=== PATIENT | female | born 1985 | race Caucasian/White ===

== ENCOUNTER → 2023-03-27 15:20 | Outpatient (BNVA) | payer SELFPAY | PROVIDERS: Visit Provider Nurse Practitioner Family | DX: R11.2 Nausea with vomiting, unspecified (principal); R19.7 Diarrhea, unspecified; R52 Pain, unspecified; N39.0 Urinary tract infection, site not specified | CPT/HCPCS: 81000; 87077; 87086; 87184; 87400; 87426 ==

== ENCOUNTER 2023-08-08 18:59 | Emergency (ER) | payer BC, MEDICAID, SELFPAY ==
[2023-08-08 19:40] VITALS: BP 147/89; PULSE 72; RESP 16; TEMP 36.7; O2SAT 99; BMI 34.2
--- NOTE | 2023-08-08 19:47 | ECG_ITS ---
[facility] Test Date: 2023-08-08 Pat Name: Lizbeth Peterson Department: Room: Gender: Female Pharmacy Student: : 1985 Requested By: Man Martinez Order Number: [id number] Jones MD: José Manuel Salazar M.D. Measurements Intervals [place] Rate: 64 P: 41 VA: 130 QRS: 27 QRSD: 103 T: 26 QT: 409 QTc: 423 Interpretive Statements SINUS RHYTHM No previous ECG available for comparison Electronically Signed On 08-10-2023 12:37:19 CDT by José Manuel Salazar M.D. [id number]
[2023-08-08 20:48] LABS: Amorphous Sediment Urine TRACE /hpf; Bacteria Urine 1+ /hpf; Bilirubin Urine Neg (Negative); Blood Urine Neg (Negative); Glucose Urine UA Norm (Normal); Ketones Urine Negative (Negative); Leukocyte Esterase Urine Negative (Negative); Mucus Urine 1+ /hpf; Nitrate Urine Negative (Negative); Protein Urine Neg (Negative); RBC Urine 0-4 /hpf (0-2); Urine Appearance Hazy (CLEAR); Urine Color Yellow (Yellow); Urobilinogen Urine Neg (Negative); WBC Urine 0-4 /hpf (0-5); pH Urine 5 (5-7)
--- NOTE | 2023-08-08 21:10 | ED_ITS ---
HPI - Abdominal Pain General: Chief Complaint: Abdominal Pain Stated Complaint: severe right back pain has uti tightness in chest Time Seen by Provider: 08/08/23 21:08 History of Present Illness: 38-year-old female who says she has been battling an E. coli urinary tract infection for some time. Recently had worsening and was started on Macrobid. She says now she is been having flank pain and continued dysuria. She has been feeling lightheaded and dizzy. Review of Systems Narrative: Constitutional symptoms: Negative except as documented in HPI. Skin symptoms: Negative except as documented in HPI. Eye symptoms: Negative except as documented in HPI. ENMT symptoms: Negative except as documented in HPI. Respiratory symptoms: Negative except as documented in HPI. Cardiovascular symptoms: Negative except as documented in HPI. Gastrointestinal symptoms: Negative except as documented in HPI. Genitourinary symptoms: Negative except as documented in HPI. Musculoskeletal symptoms: Negative except as documented in HPI. Neurologic symptoms: Negative except as documented in HPI. Psychiatric symptoms: Negative except as documented in HPI. Endocrine symptoms: Negative except as documented in HPI. Course Vital Signs: Vital signs: Vital Signs Temperature 98.1 F 08/08/23 19:40 Pulse Rate 72 08/08/23 19:40 Respiratory Rate 16 08/08/23 19:40 Blood Pressure 147/89 08/08/23 19:40 Pulse Oximetry 99 08/08/23 19:40 Oxygen Delivery Me thod Room Air 08/08/23 19:40 MDM - Abdominal Pain Medical Decision Making Medical decision making: Differential diagnosis including but not limited to and based on the above HPI, review of systems and physical exam: Orders placed to evaluate differential diagnosis based on the above differential, HPI and physical exam EKG: Time 1956 rate 64 normal sinus rhythm, No ST-T changes, no ectopy, normal HI & QRS intervals, This was reviewed and interpreted by myself the ER physician at 2004. Lab Review: Laboratory results were reviewed and interpreted by myself the emergency room physician. Urinalysis reveals the patient still has a urinary tract infection. I reviewed the patient's medical record. Assessment and plan: Urinary tract infection Dehydration -Rocephin and normal saline bolus in the emergency room - Discharged home - Discussed plan with patient. Answered any questions. - Evaluation and treatment of this problem were appropriate in the emergency setting. Lab Data Labs/Radiology: Laboratory Results Urine Color Yellow (Yellow) 08/08/23 20:00 Urine Appearance Hazy (CLEAR) A 08/08/23 20:00 Urine pH 5 (5-7) 08/08/23 20:00 Ur Specific [place] 1.020 (1.005-1.030) 08/08/23 20:00 Urine Protein Neg (Negative) 08/08/23 20:00 Urine Glucose (UA) Norm (Normal) 08/08/23 20:00 Urine Ketones Negative (Negative) 08/08/23 20:00 Urine Blood Neg (Negative) 08/08/23 20:00 Urine Nitrate Negative (Negative) 08/08/23 20:00 Urine Bilirubin Neg (Negative) 08/08/23 20:00 Urine Urobilinogen Neg mg/dL (Negative) 08/08/23 20:00 Ur Leukocyte Esterase Negative (Negative) 08/08/23 20:00 Urine RBC 0-4 /hpf (0-2) H 08/08/23 20:00 Urine WBC 0-4 /hpf (0-5) H 08/08/23 20:00 Ur Squamous Epith Cells 5-10 /hpf (0-5) H 08/08/23 20:00 Calcium Oxalate Crystal 5-10 /hpf H 08/08/23 20:00 Amorphous Sediment Trace /hpf 08/08/23 20:00 Urine Bacteria 1+ /hpf (NONE) H 08/08/23 20:00 Urine Mucus 1+ /hpf 08/08/23 20:00 No radiology studies performed this visit Discharge Plan Discharge Patient Disposition: Home Clinical Impression: Urinary tract infection, Dehydration Condition: Stable Prescriptions: New diclofenac sodium 50 mg tablet,delayed release (DR/EC) 50 mg PO Q12H Qty: 20 0RF cefdinir 300 mg capsule 300 mg PO BID 10 Days Qty: 20 0RF No Action baclofen 20 mg tablet 20 mg PO TID gabapentin 600 mg tablet 600 mg PO TID ezetimibe [Zetia] 10 mg tablet 10 mg PO DAILY metformin 500 mg tablet 500 mg PO DAILY buspirone 10 mg tablet 10 mg PO TID sertraline [Zoloft] 100 mg tablet 150 mg PO DAILY atenolol 50 mg tablet 50 mg PO DAILY albuterol sulfate 2.5 mg /3 mL (0.083 %) solution for nebulization 2.5 mg inhalation Q6H PRN albuterol sulfate 90 mcg/actuation aerosol powdr breath activated 2 inh inhalation Q6H PRN pantoprazole 20 mg tablet,delayed release (DR/EC) 20 mg PO DAILY diphenhydramine HCl [Benadryl] 25 mg capsule 25 mg PO TID PRN cetirizine [Zyrtec] 10 mg tablet 10 mg PO DAILY PRN sulfamethoxazole-trimethoprim [Bactrim DS] 800-160 mg tablet 1 tab PO BID 7 Days Qty: 14 0RF Discharge Orders: Discharge ED (Routine); Ordered 08/08/23 Ordered By: Kasey Teran Discharge Diet: Usual diet Discharge Activity: Increase activity as tolerated Patient Instructions: Urinary Tract Infection in Women (ED), Opioid Safety, Pain Management Coding Level of Care Code ED [employer] for [place]
[2023-08-08] MEDS: cefTRIAXone 1,000 MG in sodium chloride 0.9% (plus) 50 ML 100 MG IV (21:56)
[2023-08-08] MEDS: sodium chloride 0.9% 1,000 ML 999 ML IV (21:56)
== END 2023-08-08 23:22 | disposition home or self-care (01) ==
PROVIDERS: Emergency Medicine; Emergency Provider Emergency Medicine
DX: N39.0 Urinary tract infection, site not specified (principal); E86.0 Dehydration; Z79.84 Long term (current) use of oral hypoglycemic drugs
CPT/HCPCS: 81001; 93005; 96374; 99284; J0696; J7030

== ENCOUNTER 2023-09-12 14:03 | Emergency (ER) | payer BC, MEDICAID, SELFPAY ==
[2023-09-12 14:21] VITALS: BP 125/84; PULSE 87; RESP 16; TEMP 36.6; O2SAT 99; BMI 33.7
--- NOTE | 2023-09-12 14:32 | CTR_ITS ---
PROCEDURE INFORMATION: Exam: CT Abdomen And Pelvis With Contrast Exam date and time: 09/12/2023 3:16 PM Age: 38 years old Clinical indication: Nausea and vomiting; Abdominal pain; Epigastric; Prior surgery; Surgery date: 6+ months; Surgery type: Hyst, gb, hernia; Additional info: Abd pain TECHNIQUE: Imaging protocol: Computed tomography of the abdomen and pelvis with contrast. Axial, coronal and sagittal reformatted images were created and reviewed. Radiation optimization: All CT scans at this facility use at least one of these dose optimization techniques: automated exposure control; mA and/or kV adjustment per patient size (includes targeted exams where dose is matched to clinical indication); or iterative reconstruction. Contrast material: OMNI 350; Contrast volume: 100 ml; Contrast route: INTRAVENOUS (IV); COMPARISON: No relevant prior studies available. RADIATION DOSE METRICS: Total DLP (mGy-cm): 1003.5 FINDINGS: Liver: Diffuse hepatic steatosis. Gallbladder and bile ducts: Status post cholecystectomy. No biliary ductal dilatation. Pancreas: Unremarkable. Spleen: Unremarkable. Adrenal glands: Normal. No mass. Kidneys and ureters: Left renal cysts, measuring up to 1.1 cm (no follow-up is indicated based on the imaging appearance). Nonobstructing left renal calculus. No hydronephrosis. Stomach and bowel: No bowel wall thickening. No obstruction. No pneumatosis. Appendix: Normal. Intraperitoneal space: No free fluid. No organized fluid collection. No free air. Vasculature: Mild atherosclerotic disease. No aneurysm or dissection. Lymph nodes: No pathologically enlarged lymph nodes. Urinary bladder: Mild circumferential urinary bladder wall thickening, likely secondary to underdistention. Reproductive: Bilateral ovarian follicles. Status post hysterectomy. Bones/joints: No acute osseous abnormality. Mild degenerative changes. Soft tissues: Unremarkable. CT/CT abdomen pelvis w con* [id number]: 1. No CT evidence of acute intra-abdominal or pelvic pathology. 2. Additional findings, as above. COMMENTS: Consistent with the [employer]'s Incidental Findings Committee white paper (J Am Gregg Radiol 2018): Any incidental renal lesion less than 1 cm or classified as too small to characterize, or any incidental cystic renal lesion characterized as simple-appearing, is likely benign. No follow-up imaging is recommended for these lesions per consensus recommendations based on imaging criteria.
--- NOTE | 2023-09-12 14:33 | ED_ITS ---
HPI - Abdominal Pain 2 General: Chief Complaint: Abdominal Pain Stated Complaint: abd pain, lower back pain, nausea Time Seen by Provider: 09/12/23 14:04 Source: patient Mode of arrival: ambulatory Limitations: no limitations History of Present Illness: 38-year-old female states she been havin g epigastric pain over the last week. States its much worse after eating has been a burning sharp pain she had some nausea denies any vomiting she had a cholecystectomy and a hysterectomy in the past. She states that she has had gastritis in the past but is not on any meds for currently. Denies any fevers or dysuria Associated Symptoms: Reports nausea; Denies chills, diarrhea, dysuria, fever(s) and vomiting Review of Systems 2 Const: Denies: fever(s), chills, body aches or change in appetite Eyes: Denies: blurry vision or eye discomfort ENMT: Denies: throat pain or dental pain Card: Denies: chest pain Resp: Denies: dyspnea GI: Reports: abdominal pain and nausea; Denies: vomiting or diarrhea : Denies: dysuria Musc: Denies: neck pain or back pain Skin/Breast: Denies: rash Neuro: Denies: headache(s) Physical Exam 2 Const: COMMON NORMALS: no acute distress, patient oriented x3 and healthy appearing HENMT: COMMON NORMALS: normocephalic and atraumatic HEAD & SCALP: n ormocephalic and atraumatic Neck/C-Spine: COMMON NORMALS: full ROM and supple Chest: COMMONS NORMALS: normal inspection of the chest Resp: COMMON NORMALS: normal respiratory effort Cardio: COMMON NORMALS: regular rate, regular rhythm and No murmurs present (Cardio) RATE: regular rate RHYTHM: regular rhythm GI: COMMON NORMALS: Normal to inspection, nondistended, normoactive bowel sounds present, Soft to palpation, non-tender and no masses PALPATION: Yes Soft to palpation Extremity: COMMON NORMALS: normal to inspection and full ROM Neuro: COMMON NORMALS: patient oriented x3, moves all extremities and no focal motor deficits Psych: COMMON NORMALS: mental status grossly normal, Normal thought process present and cooperative THOUGHT PROCESS: Normal thought process present Skin: COMMON NORMALS: no rashes or lesions noted and no wounds GENERAL SKIN EXAM: no rashes or lesions noted Course 2 Vital Signs: Vital signs: Vital Signs Temperature 97.9 F 09/12/23 14:21 Pulse Rate 87 09/12/23 14:21 Respiratory Rate 16 09/12/23 14:21 Blood Pressure 125/84 09/12/23 14:21 Pulse Oximetry 99 09/12/23 14:21 MDM - Abdominal Pain Medical Decision Making Patient presents here with epigastric abdominal pain blood work CT here are all normal is likely gastritis we will get her follow-up with surgery we will start her on Protonix she is return if worsening she understands agrees to plan Medical Records I reviewed the patient's medical records. Lab Data I reviewed the patient's lab results. 09/12/23 14:18 09/12/23 14:18 Labs/Radiology: Radiology Impressions Abdomen/Pelvis CT 09/12/23 14:[address]: 1[address] evidence of acute intra-abdominal or pelvic pathology. 2. Additional findings, as above. COMMENTS: Consistent with the [employer]'s Incidental Findings Committee white paper (J Am Gregg Radiol 2018): Any incidental renal lesion less than 1 cm or classified as too small to characterize, or any incidental cystic renal lesion characterized as simple-appearing, is likely benign. No follow-up imaging is recommended for these lesions per consensus recommendations based on imaging criteria. Laboratory Results WBC 13.47 10^3/uL (3.29-11.43) H 09/12/23 14:18 RBC 4.51 10^6/uL (3.85-5.65) 09/12/23 14:18 Hgb 14.20 g/dL (11.27-16.99) 09/12/23 14:18 Hct 42.0 % (36-47) 09/12/23 14:18 MCV 93.1 fl (85-98) 09/12/23 14:18 MCH 31.5 pg (27-33) 09/12/23 14:18 MCHC 33.8 g/dL (30-55) 09/12/23 14:18 RDW 12.1 % (12.1-15.1) 09/12/23 14:18 Plt Count 305 10^3/cmm (157-399) 09/12/23 14:18 MPV 9.7 fL (7.4-10.4) 09/12/23 14:18 Neut % (Auto) 68.6 % 09/12/23 14:18 Lymph % (Auto) 22.5 % 09/12/23 14:18 [place] % (Auto) 6.0 % 09/12/23 14:18 Eos % (Auto) 2.2 % 09/12/23 14:18 Baso % (Auto) 0.3 % 09/12/23 14:18 Neut # (Auto) 9.24 10^3/uL (1.8-7.7) H 09/12/23 14:18 Lymph # (Auto) 3.0 10^3/uL (0.8-4.8) 09/12/23 14:18 [place] # (Auto) 0.8 10^3/uL (0.2-0.9) 09/12/23 14:18 Eos # (Auto) 0.3 10^3/uL (0.0-0.8) 09/12/23 14:18 Baso # (Auto) 0.0 10^3/uL (0.0-0.1) 09/12/23 14:18 Nucleated RBC % (auto) 0 % 09/12/23 14:18 Nucleated RBCs # 0.0 /100WBC 09/12/23 14:18 Sodium 135 mmol/L (136-145) L 09/12/23 14:18 Potassium 4.8 mmol/L (3.5-5.1) 09/12/23 14:18 Chloride 100 mmol/L (98-107) 09/12/23 14:18 Carbon Dioxide 27 mmol/L (22-29) 09/12/23 14:18 Anion Gap 12.8 (5-19) 09/12/23 14:18 BUN 12 mg/dL (6-20) 09/12/23 14:18 Creatinine 0.6 mg/dL (0.5-0.9) 09/12/23 14:18 GFR Calculation 110.7 mL/min (90-130) 09/12/23 14:18 Glucose 127 mg/dL (65-115) H 09/12/23 14:18 Calculated Osmolality 281 mOsm/kg (285-295) L 09/12/23 14:18 Calcium 9.1 mg/dL (8.5-10.5) 09/12/23 14:18 Total Bilirubin 0.4 mg/dL (0.15-1.2) 09/12/23 14:18 AST 21 U/L (0-32) 09/12/23 14:18 ALT 33 U/L (0-33) 09/12/23 14:18 Alkaline Phosphatase 101 U/L (35-105) 09/12/23 14:18 Total Protein 7.4 g/dL (6.6-8.7) 09/12/23 14:18 Albumin 4.2 g/dL (3.5-5.2) 09/12/23 14:18 Globulin 3.2 g/dL (1.3-4.6) 09/12/23 14:18 Lipase 38 U/L (13-60) 09/12/23 14:18 HCG, Qual Negative (Negative) 09/12/23 14:18 Urine Color Yellow (Yellow) 09/12/23 14:55 Urine Appearance Cloudy (CLEAR) A 09/12/23 14:55 Urine pH 5 (5-7) 09/12/23 14:55 Ur Specific [place] 1.015 (1.005-1.030) 09/12/23 14:55 Urine Protein Neg (Negative) 09/12/23 14:55 Urine Glucose (UA) Norm (Normal) 09/12/23 14:55 Urine Ketones Negative (Negative) 09/12/23 14:55 Urine Blood Neg (Negative) 09/12/23 14:55 Urine Nitrate Negative (Negative) 09/12/23 14:55 Urine Bilirubin Neg (Negative) 09/12/23 14:55 Urine Urobilinogen Norm mg/dL (Negative) 09/12/23 14:55 Ur Leukocyte Esterase Negative (Negative) 09/12/23 14:55 Urine RBC None /hpf (0-2) 09/12/23 14:55 Urine WBC None /hpf (0-5) 09/12/23 14:55 Ur Squamous Epith Cells Too numerous to cnt /hpf (0-5) H 09/12/23 14:55 Amorphous Sediment Not Reportable 09/12/23 14:55 Urine Bacteria 1+ /hpf (NONE) H 09/12/23 14:55 All radiology interpretation(s) finalized by discharge Discharge Plan Discharge Patient Disposition: Home Clinical Impression: Abdominal pain Condition: Stable Prescriptions: New Protonix 40 mg tablet,delayed release (DR/EC) 40 mg PO DAILY Qty: 60 0RF No Action baclofen 20 mg tablet 20 mg PO TID gabapentin 600 mg tablet 600 mg PO TID ezetimibe [Zetia] 10 mg tablet 10 mg PO DAILY metformin 500 mg tablet 500 mg PO DAILY buspirone 10 mg tablet 10 mg PO TID sertraline [Zoloft] 100 mg tablet 150 mg PO DAILY atenolol 50 mg tablet 50 mg PO DAILY albuterol sulfate 2.5 mg /3 mL (0.083 %) solution for nebulization 2.5 mg inhalation Q6H PRN (Reason: Shortness Of Breath) albuterol sulfate 90 mcg/actuation aerosol powdr breath activated 2 inh inhalation Q6H PRN (Reason: Shortness Of Breath) diphenhydramine HCl [Benadryl] 25 mg capsule 25 mg PO TID PRN (Reason: ALLERGIES) cetirizine [Zyrtec] 10 mg tablet 10 mg PO DAILY ondansetron 4 mg tablet,disintegrating See Rx Instructions .ROUTE .COMPLEX Rx Instructions: DISSOLVE 1 TO 2 TABLETS ON TOP OF THE TONGUE WHERE IT WILL DISSOLVE THEN SWALLOW EVERY TWELVE HOURS NEEDED. Antifungal (clotrimazole) 1 % cream See Rx Instructions .ROUTE .COMPLEX Rx Instructions: APPLY TO THE AFFECTED AND SURROUNDING AREAS OF SKIN TWICE DAILY IN THE MORNING AND IN THE EVENING NEEDED. 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
[2023-09-12 14:36] LABS: Basophils % 0.3 %; Eosinophils # 0.3 10^3/uL (0.0-0.8); Eosinophils % 2.2 %; Lymphocytes % 22.5 %; Mean Corpuscular HGB Conc 33.8 g/dL (30-55); Mean Corpuscular Hemoglobin 31.5 pg (27-33); Mean Corpuscular Volume 93.1 fl (85-98); Mean Platelet Volume 9.7 fL (7.4-10.4); Monocytes # 0.8 10^3/uL (0.2-0.9); Neutrophils # 9.24 10^3/uL (1.8-7.7); Neutrophils % 68.6 %; Nucleated Red Blood Cells % 0 %; Platelet Count 305 10^3/cmm (157-399); Red Blood Count 4.51 10^6/uL (3.85-5.65); Red Cell Distribution Width 12.1 % (12.1-15.1); White Blood Count 13.47 10^3/uL (3.29-11.43)
[2023-09-12 14:46] LABS: Alanine Aminotransferase 33 U/L (0-33); Albumin Level 4.2 g/dL (3.5-5.2); Alkaline Phosphatase 101 U/L (35-105); Anion Gap 12.8 (5-19); Aspartate Amino Transferase 21 U/L (0-32); Blood Urea Nitrogen 12 mg/dL (6-20); Calcium 9.1 mg/dL (8.5-10.5); Carbon Dioxide 27 mmol/L (22-29); Chloride 100 mmol/L (98-107); Creatinine Clr Calc Pharmacy 139.7613; Globulin 3.2 g/dL (1.3-4.6); Glomerular Filtration Rate 110.7 mL/min (90-130); Glucose 127 mg/dL (65-115); Lipase 38 U/L (13-60); Osmolality Calculated 281 mOsm/kg (285-295); Potassium 4.8 mmol/L (3.5-5.1); Sodium 135 mmol/L (136-145); Total Bilirubin 0.4 mg/dL (0.15-1.2); Total Protein 7.4 g/dL (6.6-8.7)
[2023-09-12] MEDS: lidocaine 2% viscous 15 ML, aluminum-mag hydrox-simethicon 30 ML, sucralfate oral liq 1 GM PO (15:04)
[2023-09-12] MEDS: ondansetron 2 mg/ML SDV 2 mL 4 MG IVP (15:04)
[2023-09-12 15:15] LABS: HCG, Serum Qual Negative (Negative)
[2023-09-12 15:18] LABS: Add Urine Culture? No; Add Urine Microscopic? YES; Bacteria Urine 1+ /hpf; Bilirubin Urine Neg (Negative); Blood Urine Neg (Negative); Glucose Urine UA Norm (Normal); Ketones Urine Negative (Negative); Leukocyte Esterase Urine Negative (Negative); Nitrate Urine Negative (Negative); Protein Urine Neg (Negative); Specific Gravity, Urine 1.015 (1.005-1.030); Squamous Epithelial Cell Urine TOO NUMEROUS TO CNT /hpf (0-5); Urine Appearance Cloudy (CLEAR); Urine Color Yellow (Yellow); Urobilinogen Urine Norm (Negative); pH Urine 5 (5-7)
[2023-09-12] MEDS: iohexol 350 mg/mL 500 mL Btl (per mL) IV (15:26)
--- NOTE | 2023-09-12 16:12 | DCPLANNER ---
message sent to gen surg for er f/u
[2023-09-12 16:53] VITALS: RESP 18; O2SAT 97
== END 2023-09-12 16:54 | disposition home or self-care (01) ==
PROVIDERS: Emergency Provider Emergency Medicine
DX: R10.13 Epigastric pain (principal); Z79.84 Long term (current) use of oral hypoglycemic drugs
CPT/HCPCS: 36415; 74177; 80053; 81001; 83690; 84703; 85025; 96374; 99285; J2405; Q9967

== ENCOUNTER 2023-10-23 11:04 | Day surgery (SDC) | payer BC, MEDICAID, SELFPAY ==
--- NOTE | 2023-10-23 11:06 | P.HPUD_ITS ---
Surgery/Procedure H&P Update DATE OF PROCEDURE: October 23, 2023 DATE H&P PERFORMED: 10/03/23 H&P UPDATE INFORMATION: I have reviewed H&P completed within last 30 days, I have examined patient prior to procedure, No changes to prior documentation and H&P is in [facility] [place] on date indicated PLANNED PROCEDURE: Operation Date: 10/23/23 12:10 Proposed Procedures p EGD 85072, R10.13(Not Applicable) - Cody Saenz MD
[2023-10-23 11:21] VITALS: BMI 34.2
--- NOTE | 2023-10-23 11:23 | ANES.PREANE2 ---
Pre-Anesthetic Assessment Height/Weight: Height 1.65 m Weight 93.44 kg Preop Diagnosis: epigatric pain Operation Date: 10/23/23 12:10 Proposed Procedures p EGD 14419, R10.13(Not Applicable) - Cody Saenz MD Familial anesthetic complications: none Was Beta Azucena taken within 24 hours: Yes Last intake: meal and drink 10/22/23- 2330 Social No tobacco (4 years ago) Cannibas use daily. 2 days last use. Airway Submandibular: within normal limits Cervical ROM: within normal limits Mallampati: Class I Dentition: other Comments: Comments: no upper teeth Pulmonary Asthma (well controlled) CV/HEM Hypertension None reported Hepatic None reported GI Gastroesophageal Reflux Disease abdominal pain. Metabolic Diabetes Mellitus (prediabetic) and Hyperlipidemia [facility] None reported Neuropsych Anxiety and Depression Anesthetic Plan ASA status: 3 Anesthesia: MAC Medications/Allergies Home Medications Medication Instructions Recorded Confirmed Last Taken Type albuterol sulfate 2.5 mg/3 mL 2.5 mg inhalation Q6H PRN 03/27/23 10/23/23 Unknown History (0.083 %) solution for nebulization Shortness Of Breath albuterol sulfate 90 mcg/actuation 2 inh inhalation Q6H PRN Shortness 03/27/23 10/23/23 Unknown History breath activated powder inhaler Of Breath atenolol 50 mg tablet 50 mg PO DAILY 03/27/23 10/21/23 10/22/23 History baclofen 20 mg tablet 20 mg PO TID 03/27/23 10/21/23 10/22/23 History buspirone 10 mg tablet 10 mg PO TID 03/27/23 10/21/23 10/22/23 History cetirizine 10 mg tablet (Zyrtec) 10 mg PO DAILY 03/27/23 10/21/23 10/22/23 History diphenhydramine HCl 25 mg capsule 50 mg PO BID PRN ALLERGIES 03/27/23 10/21/23 10/22/23 History (Benadryl) ezetimibe 10 mg tablet (Zetia) 10 mg PO DAILY 03/27/23 10/21/23 10/22/23 History gabapentin 600 mg tablet 600 mg PO TID 03/27/23 10/21/23 10/22/23 History metformin 500 mg tablet 500 mg PO DAILY 03/27/23 10/21/23 10/22/23 History sertraline 100 mg tablet (Zoloft) 150 mg PO DAILY 03/27/23 10/21/23 10/22/23 History clotrimazole 1 % topical cream See Rx Instructions .Route 09/12/23 10/21/23 10/22/23 History (Antifungal (clotrimazole)) .COMPLEX PRN Itching ondansetron 4 mg disintegrating See Rx Instructions .Route .COMPLEX 09/12/23 10/21/23 10/22/23 History tablet pantoprazole 40 mg tablet,delayed 40 mg PO DAILY #60 tabs 09/12/23 10/21/23 10/22/23 Rx release (Protonix) budesonide-formoterol HFA 160 2 puff inhalation PRN PRN 10/21/23 10/23/23 Unknown History mcg-4.5 mcg/actuation aerosol Shortness Of Breath inhaler (Symbicort) ciprofloxacin HCl 500 mg tablet 500 mg PO BID 10/21/23 10/21/23 10/22/23 History naproxen sodium 220 mg capsule 660 mg PO BID PRN Pain 10/21/23 10/21/23 10/22/23 History (Aleve) Allergies Allergy/AdvReac Type Severity Reaction Status Date / Time linaclotide [From Linzess] Allergy Intermediate hives Verified 10/21/23 11:35 [id number] Reductase Allergy Intermediate leg cramps Verified 10/21/23 11:35 Inhibitor lortab Allergy Intermediate nausea and Uncoded 10/03/23 11:05 vomiting PFSH Anesthesia Family History (Updated 10/03/23 @ 11:13 by Samara Lamar MA) Mother Colon cancer Social History Smoking and tobacco/nicotine status: former use of tobacco/nicotine Data Anesthesia Cardiac Studies: No Data to Display
[2023-10-23 11:24] VITALS: BP 147/88; PULSE 67; RESP 18; TEMP 36.2; O2SAT 98
[2023-10-23] MEDS: sodium chloride 0.9% 1,000 ML 30 ML IV (11:30)
[2023-10-23 11:32] LABS: Glucose Point of Care 168 mg/dL (70-110)
[2023-10-23 12:17] VITALS: BP 130/96; PULSE 93; RESP 20; TEMP 36.4; O2SAT 99
[2023-10-23 12:22] VITALS: BP 106/75; PULSE 92; RESP 20; O2SAT 100
--- NOTE | 2023-10-23 12:29 | PC.NURSE ---
1217 received patient from Jana LA following procedure, patient arrived coughing heavily, Marlene REGAN at bedside, O2 sat 99%. Patient continued coughing heavily, lungs CTA 1220 patient continue to cough heavily, experate pink tinged sputum. states she did not take her inhaler this morning. 1225 continue to cough heavily, O2 sat 100%, lunch CTA. Spoke with Marlene REGAN and will order a breathing treatment. 1228 patient continues to cough, not as heavily. O2 sat 98% 1232 coughing continues to get more relaxed. patient sitting up in bed.
[2023-10-23 12:32] VITALS: BP 115/86; PULSE 70; RESP 20; O2SAT 98
--- NOTE | 2023-10-23 12:34 | PC.NURSE ---
1234 RT here for breathing tx.
[2023-10-23] MEDS: albuterol 2.5 mg/3 mL Neb INHALATION (12:36)
[2023-10-23 12:38] VITALS: BP 115/86; PULSE 75; PULSE 82; RESP 16; RESP 20; O2SAT 99
--- NOTE | 2023-10-23 12:43 | PC.NURSE ---
1243 rt tx continues, coughing subsiding, patient nodding head yes that she's feeling better.
[2023-10-23 12:45] VITALS: BP 117/69; PULSE 81; RESP 20; O2SAT 100
--- NOTE | 2023-10-23 12:54 | PC.NURSE ---
1254 patient getting dressed, states she is feeling better, coughing not as heavy.
--- NOTE | 2023-10-23 13:05 | ANE.PACU2 ---
Inpatient post-anesthesia follow up: Airway intact: Yes Vital signs: Temperature 97.5 F Pulse Rate 81 Respiratory Rate 20 Blood Pressure 117/69 Pulse Oximetry 100 Oxygen Delivery Me thod Room Air Oxygen Flow Rate Fraction of Inspir ed Oxygen Hydration adequate: Yes Nausea and vomiting: No Pain level: 1 Mental status: Baseline
== END 2023-10-23 13:02 | disposition home or self-care (01) ==
PROVIDERS: PCP Nurse Practitioner Occupational Health; Visit Provider Surgery
PROC: 0DJ08ZZ Inspection of Upper Intestinal Tract, Via Natural or Artificial Opening Endoscopic (ICD-10-PCS; CPT 43235; principal; 2023-10-23 12:10)
DX: R10.13 Epigastric pain (principal); K29.50 Unspecified chronic gastritis without bleeding; K21.9 Gastro-esophageal reflux disease without esophagitis; E11.9 Type 2 diabetes mellitus without complications; E78.5 Hyperlipidemia, unspecified; Z80.0 Family history of malignant neoplasm of digestive organs; Z87.891 Personal history of nicotine dependence
CPT/HCPCS: 36416; 43239; 82962; 88305; 88342; 94640; J2704; J7030; J7613

== ENCOUNTER → 2023-12-03 14:20 | Outpatient (BNVA) | payer BC, MEDICAID, SELFPAY | PROVIDERS: PCP Nurse Practitioner Occupational Health; Visit Provider Surgery | DX: R19.7 Diarrhea, unspecified (principal); R10.13 Epigastric pain | CPT/HCPCS: 82274; 83630; 83993 ==

== ENCOUNTER 2023-12-18 18:03 | Emergency (ER) | payer BC, MEDICAID, SELFPAY ==
[2023-12-18 18:04] VITALS: BP 158/84; PULSE 81; RESP 19; TEMP 36.5; O2SAT 100; BMI 33.5
--- NOTE | 2023-12-18 18:24 | W.ED.ABDPA2 ---
HPI - Abdominal Pain General: Chief Complaint: Abdominal Pain Stated Complaint: abd pain Time Seen by Provider: 12/18/23 18:15 History of Present Illness: 38-year-old female who over the last 2 months has been having multiple GI issues. She has had recurrent urinary tract infections. She is also having endoscopy for epigastric pain. Was found to have some gastritis but nothing else. He has been concerned about Crohn's disease and they are planning on doing a colonoscopy at some point. The rib is in surgical follow-up no couple days ago. Apparently today she went to her primary physician she was having severe epigastric pain again and also had noticed some blood in her urine. Currently her urine was negative at the clinic but the pain was so bad that her primary made her come to the emergency room by ambulance. Some nausea. No vomiting. No fevers. Related Data Home Medications Medication Instructions Recorded Confirmed albuterol sulfate 2.5 mg/3 mL 2.5 mg inhalation Q6H PRN 03/27/23 12/03/23 (0.083 %) solution for nebulization Shortness Of Breath albuterol sulfate 90 mcg/actuation 2 inh inhalation Q6H PRN Shortness 03/27/23 12/03/23 breath activated powder inhaler Of Breath atenolol 50 mg tablet 50 mg PO DAILY 03/27/23 12/03/23 baclofen 20 mg tablet 20 mg PO TID 03/27/23 12/03/23 buspirone 10 mg tablet 10 mg PO TID 03/27/23 12/03/23 cetirizine 10 mg tablet (Zyrtec) 10 mg PO DAILY 03/27/23 12/03/23 diphenhydramine HCl 25 mg capsule 50 mg PO BID PRN ALLERGIES 03/27/23 12/03/23 (Benadryl) ezetimibe 10 mg tablet (Zetia) 10 mg PO DAILY 03/27/23 12/03/23 gabapentin 600 mg tablet 600 mg PO TID 03/27/23 12/03/23 metformin 500 mg tablet 500 mg PO DAILY 03/27/23 12/03/23 sertraline 100 mg tablet (Zoloft) 150 mg PO DAILY 03/27/23 12/03/23 clotrimazole 1 % topical cream See Rx Instructions .Route 09/12/23 12/03/23 (Antifungal (clotrimazole)) .COMPLEX PRN Itching ondansetron 4 mg disintegrating See Rx Instructions .Route .COMPLEX 09/12/23 12/03/23 tablet budesonide-formoterol HFA 160 2 puff inhalation PRN PRN 10/21/23 12/03/23 mcg-4.5 mcg/actuation aerosol Shortness Of Breath inhaler (Symbicort) ciprofloxacin HCl 500 mg tablet 500 mg PO BID 10/21/23 12/03/23 Previous Rx's Medication Instructions Recorded pantoprazole 40 mg tablet,delayed 40 mg PO BID #60 tabs 12/03/23 release cephalexin 500 mg capsule 500 mg PO BID 10 days #20 caps 12/18/23 diclofenac sodium 50 mg 50 mg PO BID PRN pain #14 tabs 12/18/23 tablet,delayed release hydrocodone 5 mg-acetaminophen 325 1 tab PO Q6H PRN pain #20 tabs 12/18/23 mg tablet polyethylene glycol 3350 17 17 g PO DAILY #510 grams 12/18/23 gram/dose oral powder (Miralax) tamsulosin 0.4 mg capsule (Flomax) 0.4 mg PO DAILY #30 caps 12/18/23 Allergies Allergy/AdvReac Type Severity Reaction Status Date / Time linaclotide [From Linzess] Allergy Intermediate hives Verified 12/18/23 18:12 [id number] Reductase Allergy Intermediate leg cramps Verified 12/18/23 18:12 Inhibitor lortab Allergy Intermediate nausea and Uncoded 12/18/23 18:12 vomiting Review of Systems Narrative: Constitutional symptoms: Negative except as documented in HPI. Skin symptoms: Negative except as documented in HPI. Eye symptoms: Negative except as documented in HPI. ENMT symptoms: Negative except as documented in HPI. Respiratory symptoms: Negative except as documented in HPI. Cardiovascular symptoms: Negative except as documented in HPI. Gastrointestinal symptoms: Negative except as documented in HPI. Genitourinary symptoms: Negative except as documented in HPI. Musculoskeletal symptoms: Negative except as documented in HPI. Neurologic symptoms: Negative except as documented in HPI. Psychiatric symptoms: Negative except as documented in HPI. Endocrine symptoms: Negative except as documented in HPI. PFSH ED PFSH: Family History (Updated 10/03/23 @ 11:13 by Samara Lamar MA) Mother Colon cancer Social History Smoking and tobacco/nicotine status: unknown if used tobacco/nicotine Physical Exam Narrative: EXAM NARRATIVE: General: Alert, no acute distress. Skin: Warm, dry. Head: Normocephalic, atraumatic. Neck: Supple, trachea midline. Eye: Extraocular movements are intact. Ears, nose, mouth and throat: mucosa moist. Cardiovascular: Regular, Normal peripheral perfusion. Respiratory: Lungs are clear to auscultation, respirations are non-labored, breath sounds are equal, Symmetrical chest wall expansion. Gastrointestinal: Soft, epigastric pain, Non distended Musculoskeletal: Normal ROM, no deformity. Neurological: Alert and oriented, No focal neurological deficit observed. Psychiatric: Cooperative, appropriate mood & affect. Course Vital Signs: Vital signs: Vital Signs Temperature 97.7 F 12/18/23 18:04 Pulse Rate 72 12/18/23 20:09 Respiratory Rate 16 12/18/23 20:09 Blood Pressure 130/96 12/18/23 20:09 Pulse Oximetry 100 12/18/23 20:09 Oxygen Delivery Me thod Room Air 12/18/23 20:09 MDM - Abdominal Pain Medical Decision Making Medical decision making: Differential diagnosis including but not limited to and based on the above HPI, review of systems and physical exam: In this patient with epigastric pain differential would include cholelithiasis or cholecystitis. Hepatitis. Diverticulitis. Constipation. UTI. colitis. small bowel obstruction. crohn's flare. pancreatitis. gastritis. peptic ulcer. also concern for acute cardiac event. Orders placed to evaluate differential diagnosis based on the above differential, HPI and physical exam Lab Review: Laboratory results were reviewed and interpreted by myself the emergency room physician. Patient does have hematuria. Mild leukocytosis. BUN/creatinine are 18 and 1 which might indicate some mild dehydration. CT of the abdomen pelvis with contrast: Left proximal ureter demonstrates 2 adjacent calculi measuring 4.3 and 4.2 mm with moderate hydro-. Some perinephric edema. She is complaining of pain down into her pelvic region. Pain in her left upper quadrant and some flank pain on the left so this likely is the cause of her pain. I reviewed the patient's medical record. Reexamination: Patient remained stable. No increased work of breathing. No altered mental status. No focal motor deficits. Pain is somewhat improved with Dilaudid. Assessment and plan: Ureterolithiasis Dehydration ?Normal saline bolus, Toradol, Dilaudid, Zofran - Discharged home - Discussed findings and plan with patient. Answered any questions. - All laboratory values were reviewed and interpreted personally by myself, the ER physician - All imaging was reviewed and interpreted personally by myself, the ER physician. - Evaluation and treatment of this problem were appropriate in the emergency setting Lab Data 12/18/23 18:26 12/18/23 18:26 Labs/Radiology: Radiology Impressions Abdomen/Pelvis CT 12/18/23 18:51 IMPRESSION: 1. Left proximal ureter demonstrates two adjacent calculi measuring 4.3 and 4.2 mm in size with moderate hydronephrosis along with perinephric edema, please correlate for pyelonephritis. 2. Left kidney punctate nonobstructing calyceal stone. 3. Left ovary 2.6 cm cyst along with a right ovary 1.6 cm cyst, similar to prior exam. 4. Hepatic steatosis. 5. Cholecystectomy. Laboratory Results WBC 14.06 10^3/uL (3.29-11.43) H 12/18/23 18:26 RBC 4.55 10^6/uL (3.85-5.65) 12/18/23 18:26 Hgb 13.90 g/dL (11.27-16.99) 12/18/23 18: Hct 40.9 % (36-47) 12/18/23 18: MCV 89.9 fl (85-98) 12/18/23 18: MCH 30.5 pg (27-33) 12/18/23 18: MCHC 34.0 g/dL (30-55) 12/18/23 18:26 RDW 12.3 % (12.1-15.1) 12/18/23 18:26 Plt Count 275 10^3/cmm (157-399) 12/18/23 18: MPV 9.8 fL (7.4-10.4) 12/18/23 18:26 Neut % (Auto) 76.3 % 12/18/23 18: Lymph % (Auto) 14.2 % 12/18/23 18:26 [place] % (Auto) 8.1 % 12/18/23 18: Eos % (Auto) 0.8 % 12/18/23 18:26 Baso % (Auto) 0.2 % 12/18/23 18:26 Neut # (Auto) 10.73 10^3/uL (1.8-7.7) H 12/18/23 18: Lymph # (Auto) 2.0 10^3/uL (0.8-4.8) 12/18/23 18:26 [place] # (Auto) 1.1 10^3/uL (0.2-0.9) H 12/18/23 18:26 Eos # (Auto) 0.1 10^3/uL (0.0-0.8) 12/18/23 18: Baso # (Auto) 0.0 10^3/uL (0.0-0.1) 12/18/23 18: Nucleated RBC % (auto) 0 % 12/18/23 18: Nucleated RBCs # 0.0 /100WBC 12/18/23 18:26 Sodium 137 mmol/L (136-145) 12/18/23 18:26 Potassium 3.7 mmol/L (3.5-5.1) 12/18/23 18: Chloride 100 mmol/L (98-107) 12/18/23 18: Carbon Dioxide 24 mmol/L (22-29) 12/18/23 18:26 Anion Gap 16.7 (5-19) 12/18/23 18:26 BUN 18 mg/dL (6-20) 12/18/23 18:26 Creatinine 1.0 mg/dL (0.5-0.9) H 12/18/23 18:26 GFR Calculation 61.4 mL/min (90-130) L 12/18/23 18:26 Glucose 117 mg/dL (65-115) H 12/18/23 18:26 Calculated Osmolality 287 mOsm/kg (285-295) 12/18/23 18:26 Lactic Acid 1.7 mmol/L (0.5-2.2) 12/18/23 18:26 Calcium 9.2 mg/dL (8.5-10.5) 12/18/23 18:26 Total Bilirubin 0.7 mg/dL (0.15-1.2) 12/18/23 18:26 AST 27 U/L (0-32) 12/18/23 18:26 ALT 27 U/L (0-33) 12/18/23 18: Alkaline Phosphatase 115 U/L (35-105) H 12/18/23 18: C-Reactive Protein 10.1 mg/L (0.0-4.9) H 12/18/23 18: Total Protein 7.1 g/dL (6.6-8.7) 12/18/23 18: Albumin 4.3 g/dL (3.5-5.2) 12/18/23 18: Globulin 2.8 g/dL (1.3-4.6) 12/18/23 18: Procalcitonin 0.07 ng/mL (0-0.5) 12/18/23 18: Urine Color [place] (Yellow) A 12/18/23 19: Urine Appearance Clear (CLEAR) 12/18/23 19: Urine pH 6.0 (5-7) 12/18/23 19: Ur Specific [place] 1.010 (1.005-1.030) 12/18/23 19:01 Urine Protein 1+ (Negative) A 12/18/23 19: Urine Glucose (UA) Negative (Normal) 12/18/23 19: Urine Ketones Negative (Negative) 12/18/23 19: Urine Blood 3+ (Negative) A 12/18/23 19: Urine Nitrate Negative (Negative) 12/18/23 19: Urine Bilirubin Negative (Negative) 12/18/23 19: Urine Urobilinogen 1.0 mg/dL (Negative) 12/18/23 19: Ur Leukocyte Esterase Negative (Negative) 12/18/23 19:01 Urine RBC 21-50 /hpf (0-2) H 12/18/23 19:01 Urine WBC 0-5 /hpf (0-5) 12/18/23 19:01 Ur Squamous Epith Cells 0-5 /hpf (0-5) 12/18/23 19:01 Amorphous Sediment Not Reportable 12/18/23 19:01 Urine Bacteria None seen /hpf (NONE) 12/18/23 19:01 Hyaline Casts 0-4 /lpf H 12/18/23 19:01 All radiology interpretation(s) finalized by discharge Discharge Plan Discharge Patient Disposition: Home Clinical Impression: Ureterolithiasis Condition: Stable Prescriptions: New hydrocodone-acetaminophen 5-325 mg tablet 1 tab PO Q6H PRN (Reason: pain) Qty: 20 0RF Flomax 0.4 mg capsule 0.4 mg PO DAILY Qty: 30 0RF cephalexin 500 mg capsule 500 mg PO BID 10 Days Qty: 20 0RF diclofenac sodium 50 mg tablet,delayed release (DR/EC) 50 mg PO BID PRN (Reason: pain) Qty: 14 0RF Miralax 17 gram/dose powder 17 g PO DAILY Qty: 510 0RF Rx Instructions: Take 1 scoop daily while taking pain medications. No Action baclofen 20 mg tablet 20 mg PO TID gabapentin 600 mg tablet 600 mg PO TID ezetimibe [Zetia] 10 mg tablet 10 mg PO DAILY metformin 500 mg tablet 500 mg PO DAILY buspirone 10 mg tablet 10 mg PO TID sertraline [Zoloft] 100 mg tablet 150 mg PO DAILY atenolol 50 mg tablet 50 mg PO DAILY albuterol sulfate 2.5 mg /3 mL (0.083 %) solution for nebulization 2.5 mg inhalation Q6H PRN (Reason: Shortness Of Breath) albuterol sulfate 90 mcg/actuation aerosol powdr breath activated 2 inh inhalation Q6H PRN (Reason: Shortness Of Breath) diphenhydramine HCl [Benadryl] 25 mg capsule 50 mg PO BID PRN (Reason: ALLERGIES) cetirizine [Zyrtec] 10 mg tablet 10 mg PO DAILY pantoprazole 40 mg tablet,delayed release (DR/EC) 40 mg PO BID Qty: 60 0RF ondansetron 4 mg tablet,disintegrating See Rx Instructions .ROUTE .COMPLEX Rx Instructions: DISSOLVE 1 TO 2 TABLETS ON TOP OF THE TONGUE WHERE IT WILL DISSOLVE THEN SWALLOW EVERY TWELVE HOURS NEEDED. clotrimazole [Antifungal (clotrimazole)] 1 % cream See Rx Instructions .ROUTE .COMPLEX PRN (Reason: Itching) Rx Instructions: APPLY TO THE AFFECTED AND SURROUNDING AREAS OF SKIN TWICE DAILY IN THE MORNING AND IN THE EVENING NEEDED. budesonide-formoterol [Symbicort] 160-4.5 mcg/actuation HFA aerosol inhaler 2 puff INHALATION PRN PRN (Reason: Shortness Of Breath) ciprofloxacin HCl 500 mg tablet 500 mg PO BID Rx Instructions: for 10 days Discharge Orders: Discharge ED (Routine); Ordered 12/18/23 Ordered By: Kasey Teran Referrals: Santana Beavers [Referring] - 4-7 days (Please call for an appointment with Dr. Beavers or urologist of your choice.) Courtney Spears FNP [Primary Care Provider] - Discharge Diet: Usual diet Discharge Activity: Increase activity as tolerated Patient Instructions: Opioid Safety, Pain Management Activity Restrictions/Additional Instructions: Call for appointment with urology. If fever (temp >100.4) develops return to the emergency room immediately, as this is an emergency. Take nausea medication prior to taking pain medications. Thank you for choosing [facility] for your healthcare needs today. Please realize this is an emergency room and that we are providing you with a medical screening exam and this may not be complete and all inclusive of all the testing and or work up that you may need to determine your ailment or severity of your illness. You have been screened and evaluated and felt safe for discharge. Health conditions do change or evolve sometimes and as such it is important that you follow up with your Primary Doctor to be re checked, 3-5 days is a general good time frame for follow up. You are always welcome to return to the ED for re assessment if your symptoms are worsening or you have new concerns Coding Level of Care Code ED [employer] Super[employer] for [place]
[2023-12-18 18:30] LABS: Basophils % 0.2 %; Eosinophils # 0.1 10^3/uL (0.0-0.8); Eosinophils % 0.8 %; Hematocrit 40.9 % (36-47); Lymphocytes % 14.2 %; Mean Corpuscular Hemoglobin 30.5 pg (27-33); Mean Corpuscular Volume 89.9 fl (85-98); Mean Platelet Volume 9.8 fL (7.4-10.4); Monocytes # 1.1 10^3/uL (0.2-0.9); Monocytes % 8.1 %; Neutrophils # 10.73 10^3/uL (1.8-7.7); Neutrophils % 76.3 %; Nucleated Red Blood Cells % 0 %; Platelet Count 275 10^3/cmm (157-399); Red Blood Count 4.55 10^6/uL (3.85-5.65); Red Cell Distribution Width 12.3 % (12.1-15.1); White Blood Count 14.06 10^3/uL (3.29-11.43)
[2023-12-18 18:49] LABS: Lactic Sepsis W/Reflex 1.7 mmol/L (0.5-2.2)
[2023-12-18 18:50] LABS: Alanine Aminotransferase 27 U/L (0-33); Albumin Level 4.3 g/dL (3.5-5.2); Alkaline Phosphatase 115 U/L (35-105); Anion Gap 16.7 (5-19); Aspartate Amino Transferase 27 U/L (0-32); Blood Urea Nitrogen 18 mg/dL (6-20); C Reactive Protein 10.1 mg/L (0.0-4.9); Calcium 9.2 mg/dL (8.5-10.5); Carbon Dioxide 24 mmol/L (22-29); Chloride 100 mmol/L (98-107); Creatinine Clr Calc Pharmacy 83.5999; Globulin 2.8 g/dL (1.3-4.6); Glomerular Filtration Rate 61.4 mL/min (90-130); Glucose 117 mg/dL (65-115); Osmolality Calculated 287 mOsm/kg (285-295); Potassium 3.7 mmol/L (3.5-5.1); Sodium 137 mmol/L (136-145); Total Bilirubin 0.7 mg/dL (0.15-1.2); Total Protein 7.1 g/dL (6.6-8.7)
--- NOTE | 2023-12-18 18:51 | CTR_ITS ---
PROCEDURE INFORMATION: Exam: CT Abdomen And Pelvis Without Contrast Exam date and time: 12/18/2023 7:45 PM Age: 38 years old Clinical indication: Abdominal pain; Prior surgery; Surgery date: 6+ months; Surgery type: Hyst, gb TECHNIQUE: Imaging protocol: Computed tomography of the abdomen and pelvis without contrast. Radiation optimization: All CT scans at this facility use at least one of these dose optimization techniques: automated exposure control; mA and/or kV adjustment per patient size (includes targeted exams where dose is matched to clinical indication); or iterative reconstruction. COMPARISON: CT abdomen pelvis w con* [id number] 09/12/2023 3:16 PM RADIATION DOSE METRICS: Total DLP (mGy-cm): 902 FINDINGS: Liver: Hepatic steatosis. Gallbladder and biliary ducts: Cholecystectomy. Pancreas: Normal. No ductal dilation. Spleen: Normal. No splenomegaly. Adrenal glands: Normal. No mass. Kidneys and ureters: Left proximal ureter demonstrates two adjacent calculi measuring 4.3 and 4.2 mm in size with moderate hydronephrosis along with perinephric edema, please correlate for pyelonephritis. Left kidney punctate nonobstructing calyceal stone. Stomach and bowel: Unremarkable. No obstruction. No mucosal thickening. Appendix: No evidence of appendicitis. Intraperitoneal space: Unremarkable. No free air. No significant fluid collection. Vasculature: Unremarkable. No abdominal aortic aneurysm. Lymph nodes: Unremarkable. No enlarged lymph nodes. Urinary bladder: Unremarkable as visualized. Reproductive: Left ovary 2.6 cm cyst along with a right ovary 1.6 cm cyst, similar to prior exam. Bones/joints: Unremarkable. No acute fracture. Soft tissues: Unremarkable. CT/CT abdomen pelvis con [id number] IMPRESSION: 1. Left proximal ureter demonstrates two adjacent calculi measuring 4.3 and 4.2 mm in size with moderate hydronephrosis along with perinephric edema, please correlate for pyelonephritis. 2. Left kidney punctate nonobstructing calyceal stone. 3. Left ovary 2.6 cm cyst along with a right ovary 1.6 cm cyst, similar to prior exam. 4. Hepatic steatosis. 5. Cholecystectomy.
[2023-12-18 18:56] LABS: Procalcitonin 0.07 ng/mL (0-0.5)
[2023-12-18 19:08] LABS: Bilirubin Urine Negative (Negative); Blood Urine 3+ (Negative); Glucose Urine UA Negative (Normal); Ketones Urine Negative (Negative); Leukocyte Esterase Urine Negative (Negative); Nitrate Urine Negative (Negative); Protein Urine 1+ (Negative); Urine Appearance Clear (CLEAR)
[2023-12-18 19:12] LABS: Bacteria Urine None Seen /hpf; Hyaline Casts Urine 0-4 /lpf; RBC Urine 21-50 /hpf (0-2); Squamous Epithelial Cell Urine 0-5 /hpf (0-5); WBC Urine 0-5 /hpf (0-5)
[2023-12-18] MEDS: sodium chloride 0.9% 1,000 ML 999 ML IV (19:13)
[2023-12-18 19:15] VITALS: BP 133/81; PULSE 75; O2SAT 100
[2023-12-18 19:23] LABS: Urine Color Orange (Yellow)
[2023-12-18 19:24] LABS: Add Urine Culture? Yes
[2023-12-18 20:03] VITALS: RESP 15; O2SAT 100
[2023-12-18] MEDS: HYDROmorphone 1 mg/mL INJ 1 mL IVP (20:03)
[2023-12-18] MEDS: ondansetron 2 mg/ML SDV 2 mL 8 MG IVP (20:04)
[2023-12-18 20:09] VITALS: BP 130/96; PULSE 72; RESP 16; O2SAT 100
[2023-12-18] MEDS: ketorolac 30 mg/mL INJ IVP (21:03)
[2023-12-18] MEDS: HYDROcodone-acetaminophen 5-325 mg Tablet 2 TAB PO (21:09)
--- NOTE | 2023-12-18 21:10 | PC.NURSE ---
Patient sent home with 2 5-325 hydrocodone pills for home use, witnessed and signed behind by charge nurse Ed LA. Medication given to primary nurse Summer LA to give to patient and educate patient on usage.
--- NOTE | 2023-12-18 21:10 | PC.NURSE ---
Pt was sent home with 2 tabs of hydrocodone 5-[address] Teran.
[2023-12-18 21:17] VITALS: BP 123/73; PULSE 75; O2SAT 100
== END 2023-12-18 21:23 | disposition home or self-care (01) ==
PROVIDERS: Emergency Provider Emergency Medicine; PCP Nurse Practitioner Occupational Health
DX: N13.2 Hydronephrosis with renal and ureteral calculous obstruction (principal); Z79.84 Long term (current) use of oral hypoglycemic drugs
CPT/HCPCS: 36415; 74176; 80053; 81001; 83605; 84145; 85025; 86140; 87086; 96361; 96374; 96375; 99285; J1170; J1885; J2405; J7030

== ENCOUNTER 2024-01-19 15:07 | Outpatient (CLI) | payer BC, MEDICAID, SELFPAY ==
--- NOTE | 2024-01-19 15:11 | XRR_ITS ---
PROCEDURE INFORMATION: Exam: XR Lumbosacral Spine Exam date and time: 01/19/2024 3:46 PM Age: 38 years old Clinical indication: Low back pain; Additional info: Vertebrogenic low back pain TECHNIQUE: Imaging protocol: Radiologic exam of the lumbosacral spine. Views: 2 or 3 views. COMPARISON: CT abdomen pelvis wo con [id number] 12/18/2023 7:45 PM FINDINGS: Bones/joints: No evidence of fracture or subluxation. Mild multilevel facet arthrosis. The sacrum and coccyx are partially obscured by bowel gas/stool. Soft tissues: Grossly unremarkable. XR/XR lumbar spine f/e only [id number] IMPRESSION: 1. No evidence of fracture or subluxation of the lumbar spine. Consider correlation with follow-up outpatient MRI if there is concern for disc pathology or neural impingement.
== END 2024-01-19 15:08 | disposition home or self-care (01) ==
LOC: RAD 15:08
PROVIDERS: PCP Nurse Practitioner Occupational Health; Visit Provider Nurse Practitioner
DX: M54.51 Vertebrogenic low back pain (principal)
CPT/HCPCS: 72120

== ENCOUNTER 2024-05-17 12:36 | Outpatient (CLI) | payer BC, MEDICAID, SELFPAY ==
[2024-05-17 13:22] LABS: Basophils % 0.3 %; Eosinophils # 0.2 10^3/uL (0.0-0.8); Eosinophils % 1.3 %; Hematocrit 42.8 % (36-47); Lymphocytes # 2.8 10^3/uL (0.8-4.8); Lymphocytes % 24.1 %; Mean Corpuscular HGB Conc 33.2 g/dL (30-55); Mean Corpuscular Hemoglobin 31.2 pg (27-33); Mean Corpuscular Volume 94.1 fl (85-98); Mean Platelet Volume 9.5 fL (7.4-10.4); Monocytes % 8.3 %; Neutrophils # 7.69 10^3/uL (1.8-7.7); Neutrophils % 65.5 %; Nucleated Red Blood Cells % 0 %; Platelet Count 361 10^3/cmm (157-399); Red Blood Count 4.55 10^6/uL (3.85-5.65); Red Cell Distribution Width 12.5 % (12.1-15.1); White Blood Count 11.74 10^3/uL (3.29-11.43)
[2024-05-17 13:44] LABS: C Reactive Protein 5.8 mg/L (0.0-4.9); LAB Peripheral Smear Sent for Review
[2024-05-17 13:46] LABS: Erythrocyte Sedimentation Rate 5 mm/hr (0-15)
== END 2024-05-17 12:37 | disposition home or self-care (01) ==
LOC: LAB 12:44
PROVIDERS: PCP Nurse Practitioner Occupational Health; Visit Provider Nurse Practitioner Occupational Health
DX: D72.829 Elevated white blood cell count, unspecified (principal)
CPT/HCPCS: 80503; 85025; 85651; 86140

== ENCOUNTER → 2024-10-27 14:59 | Outpatient (BNVA) | payer BC, MEDICAID, SELFPAY | PROVIDERS: PCP Nurse Practitioner Occupational Health; Visit Provider Nurse Practitioner Family | DX: R05.9 Cough, unspecified (principal); R07.81 Pleurodynia; R30.0 Dysuria | CPT/HCPCS: 71046; 81000 ==

== ENCOUNTER → 2024-10-28 14:30 | Outpatient (BNVA) | payer BC, MEDICAID, SELFPAY | PROVIDERS: PCP Nurse Practitioner Occupational Health; Visit Provider Nurse Practitioner Family | DX: R30.0 Dysuria (principal) | CPT/HCPCS: 87086 ==

== ENCOUNTER → 2024-11-04 14:29 | Outpatient (BNVA) | payer BC, MEDICAID, SELFPAY | PROVIDERS: PCP Nurse Practitioner Occupational Health; Visit Provider Nurse Practitioner Family | DX: R81 Glycosuria (principal) | CPT/HCPCS: 80053; 83036; 85025 ==

== ENCOUNTER 2024-11-12 12:49 | Outpatient (CLI) | payer BC, MEDICAID, SELFPAY ==
--- NOTE | 2024-11-12 13:19 | XR_ITS ---
WS: [id number] XR chest 2V* [id number] REASON FOR EXAM: SHORTNESS OF BREATH FINDINGS: The heart and the mediastinum are within normal limits. Calcified granulomatous disease bilaterally. No acute pulmonary parenchymal or pleural abnormality is identified. Mild levoscoliosis of the thoracic spine. XR/XR chest 2V* [id number] IMPRESSION: No acute chest abnormality.
== END 2024-11-12 12:50 | disposition home or self-care (01) ==
LOC: RAD 12:53
PROVIDERS: PCP Family Medicine; Visit Provider Family Medicine
DX: R06.02 Shortness of breath (principal)
CPT/HCPCS: 71046